=== PATIENT | female | born 1980 | race Caucasian/White ===

== ENCOUNTER 2020-06-28 11:14 | Outpatient (CLI) | payer OTHER, SELFPAY ==
[2020-07-01 07:26] LABS: FSH 3.4 mIU/mL (***)
== END 2020-06-28 11:15 | disposition home or self-care (01) ==
PROVIDERS: Visit Provider Obstetrics & Gynecology
DX: N91.2 Amenorrhea, unspecified (principal)
CPT/HCPCS: 36415; 83001

== ENCOUNTER 2020-07-12 08:57 | Outpatient (CLI) | payer OTHER, SELFPAY ==
--- NOTE | ~2020-07-12 | MM_ITS ---
EXAMINATION: MM screening alexandra BI w ang HISTORY: Screening mammogram TECHNIQUE: Craniocaudal and mediolateral oblique 3-D tomosynthesis images were obtained and synthetic 2-D images were generated. CAD analysis was submitted and interpreted. COMPARISON: No prior mammogram is available for comparison at this institution. BREAST PARENCHYMAL COMPOSITION: The breasts are almost entirely fatty. FINDINGS: Scattered bilateral benign calcifications. There is no evidence of suspicious mass, calcifi cation, or architectural distortion to suggest malignancy in either breast. There has been no suspici ous interval change. IMPRESSION: 1. No mammographic evidence of malignancy. 2. Recommend routine screening mammography in one year. BI-RADS Category 2: Benign finding(s). Reviewed, dictated and finalized at location A. [employer]
--- NOTE | ~2020-07-12 | US_ITS ---
EXAMINATION: US pelvic complete w TV DATE: 07/12/2020 10:06 INDICATION: Amenorrhea, polycystic ovarian syndrome. TECHNIQUE: Multiple transabdominal and endovaginal sonographic images of the pelvis were obtained. COMPARISON: 02/03/2012 FINDINGS: The uterus measures 10.3 x 4.9 x 5.8 cm. The endometrial complex measures 6 mm. The right o vary measures 1.7 x 2.4 x 1.6 cm. The left ovary measures 2.9 x 3.0 x 1.9 cm. There is a small simple cysts in each ovary. There is normal vascular flow in the ovaries. There is no free fluid in the pel vis. IMPRESSION: 1. No sonographic correlate for the patient's symptoms. Reviewed, dictated and finalized at location A. GER CRISIS
== END 2020-07-12 08:58 | disposition home or self-care (01) ==
LOC: ANHIMG 09:01
PROVIDERS: Visit Provider Obstetrics & Gynecology
DX: N91.2 Amenorrhea, unspecified (principal); Z12.31 Encounter for screening mammogram for malignant neoplasm of breast
CPT/HCPCS: 76830; 76856; 77063; 77067

== ENCOUNTER 2024-01-28 08:19 | Outpatient (CLI) | payer OTHER, SELFPAY ==
--- NOTE | ~2024-01-28 | US_ITS ---
EXAMINATION: US pelvic complete w TV DATE: 01/28/2024 08:53 INDICATION: Z87.42 - Personal history of other diseases of the female... TECHNIQUE: Multiple transabdominal and endovaginal sonographic images of the pelvis were obtained. COMPARISON: 07/12/2020. FINDINGS: Uterus: 10.3 x 5.8 x 7.3 cm. Endometrial complex measures 14 mm. Right Ovary: 3.2 x 2.8 x 2.2 cm. Vascular flow is present. No adnexal mass Left Ovary: 4.6 x 2.5 x 3.2 cm. Vascular flow is present. 2.4 and 1.8 cm simple cysts. There is no free fluid in the pelvis. IMPRESSION: Unremarkable pelvic sonogram findings. Reviewed, dictated and finalized at location K.
== END 2024-01-28 08:20 | disposition home or self-care (01) ==
LOC: MICIMG 08:20
PROVIDERS: PCP Obstetrics & Gynecology; Visit Provider Obstetrics & Gynecology
DX: Z87.42 Personal history of other diseases of the female genital tract (principal)
CPT/HCPCS: 76830; 76856